=== PATIENT | female | born 1995 | race Caucasian/White ===

== ENCOUNTER 2016-10-15 13:52 | Emergency (ER) | payer BC ==
[2016-10-15 16:34] LABS: BASOPHIL % 0.5 % (0-2); PLATELET COUNT 239 x10^3mcL (130-400)
[2016-10-15 16:42] LABS: CALCIUM 8.3 mg/dL (8.5-10.1); CARBON DIOXIDE 25.7 mmol/L (21-32); CHLORIDE SERUM 103 mmol/L (98-107); CREATININE SERUM 0.7 mg/dL (0.6-1.0); GFR1 > 60 mL/min; GLUCOSE SERUM 82 mg/dL (74-106); POTASSIUM SERUM 4.5 mmol/L (3.5-5.1); SODIUM SERUM 139 mmol/L (136-145)
[2016-10-15 16:46] LABS: ALKALINE PHOSPHATASE 41 U/L (46-116); ALT/SGPT 17 U/L (14-59); AMYLASE 80 U/L (25-115); AST/SGOT 16 U/L (15-37); BILIRUBIN TOTAL 0.3 mg/dL (0.20-1.00); LIPASE 126 IU/L (73-393); TOTAL PROTEIN, SERUM 6.3 g/dL (6.4-8.2)
[2016-10-15 16:52] LABS: AMPHETAMINE QUAL UR NONE DETECTED (NEG <=1000)
[2016-10-15 16:52] LABS: ALBUMIN 3.2 g/dL (3.4-5.0)
[2016-10-15 17:19] LABS: T4(THYROXINE) 13.1 ug/dL (4.7-13.3)
[2016-10-15 19:38] VITALS: BP 102/69
== END 2016-10-15 19:38 ==
LOC: ED 13:52
PROVIDERS: Emergency Medicine
DX: R53.1 Weakness (principal); R55 Syncope and collapse; F20.0 Paranoid schizophrenia
CPT/HCPCS: 82962; 83880; J7030; J7040; Q0092